=== PATIENT | male | born 1950 | race Caucasian/White ===

== ENCOUNTER 2022-07-15 07:49 | Day surgery (SDC) | payer OTHER ==
--- NOTE | 2022-07-14 17:28 | EKG ---
Test Date: 2022-07-13 Test Time: 14:42:32 [employer] Technical Architect: [email or web address] MEASUREMENT RESULTS: Intervals: Rate: 66 RI: 130 QRSD: 98 QT: 374 QTc: 392 [place]: P: 43 RI: 130 QRS: -33 T: 27 INTERPRETIVE STATEMENTS: Normal sinus rhythm Left axis deviation Abnormal ECG No previous ECG available for comparison Electronically Signed On 07-14-22 17:26:17 MEDICAL OFFICE RECEPTIONIST ASSISTANT by Marlon De La O
[2022-07-15] MEDS ORDERED: Ringers Lactate 1,000 ML IV ONE (08:20)
[2022-07-15] MEDS ORDERED: propofoL 200 MG/20 ML VIAL IV ONE ×3 (09:37→09:43)
[2022-07-15] MEDS ORDERED: LIDOCAINE 1% W/EPI 1:100,000 10 ML VIAL ONE (09:40)
[2022-07-15] MEDS ORDERED: EPINEPHRINE/PF 1 MG/ML AMP ONE (09:40)
[2022-07-15] MEDS ORDERED: OXYMETAZOLINE HCL 0.05% 15ML NAS ONE (09:40)
[2022-07-15] MEDS ORDERED: MIDAZOLAM HCL 2 MG/2 ML INJ ONE (09:43)
[2022-07-15] MEDS ORDERED: FENTANYL CITR 100 MCG/2 ML ONE (09:43)
[2022-07-15] MEDS ORDERED: dexAMETHasone 10 MG/ML VIAL ONE (09:44)
[2022-07-15] MEDS ORDERED: VECURONIUM 10 MG/VIAL IV ONE (09:44)
[2022-07-15] MEDS ORDERED: LIDOCAINE 2% MPF 5 ML VIAL ONE (09:45)
[2022-07-15] MEDS ORDERED: ONDANSETRON 4 MG/2 ML VIAL ONE (09:45)
[2022-07-15] MEDS ORDERED: NS 0.9% VIAL 20 ML ONE (09:46)
[2022-07-15] MEDS ORDERED: SUGAMMADEX SODIUM 200 MG/2 ML VIAL IV ONE (09:55)
[2022-07-15] MEDS ORDERED: SUCCINYLCHOLINE 20 MG/ML (10 ML) IV ONE (09:55)
--- NOTE | 2022-07-15 11:19 | P.OP ---
Airworthiness Safety Inspector: NONE,NONE Preoperative diagnosis: Neoplasm of uncertain behavior, larynx Postoperative diagnosis: Same Primary procedure: Direct laryngoscopy with telescope and biopsy Anesthesia: General Estimated blood loss: 5 mL Specimen: Interarytenoid, left arytenoid, epiglottis Findings: Exophytic tumor suspicious for cancer Operative Technique: The patient was successfully intubated by anesthesia without complication. A shoulder roll was placed and the neck was extended but supported. A upper tooth guard was placed. The [employer] laryngoscope fitted with telescope was used to perform a direct laryngoscopy. The above base of tongue and vallecula appeared normal. The epiglottis appeared thickened, red with exophytic tumor on the laryngeal aspect. The right piriform sinus appeared unremarkable. The left piriform sinus was partially obstructed with tumor from the arytenoid but the mucosa of the piriform sinus itself appeared normal. The interarytenoid area was notable for exophytic appearing tumor which was biopsied. Additional biopsy was obtained from the left arytenoid and left laryngeal surface of the epiglottis. A Ray-Jelly was packed into the larynx and allowed to sit for several minutes to aid in hemostasis. After removal, the laryngoscope was replaced, the Ray-Jelly removed, and the area inspected. The glottis itself did not appear to be involved but the endotracheal tube was not removed during the procedure due to concern for loss of airway. The tumor did not appear to be significantly bulky or obstructive of the airway and decision was made to forego tracheostomy as it was not deemed necessary at this time. The patient denied any preoperative airway symptoms, stridor, shortness of breath or significant voice changes. The patient was successfully extubated in the operating room and transported to the recovery room in stable condition. Complications: None Transferred to: Recovery Room (None) Condition: Good
[2022-07-15 12:09] VITALS: TEMP 97.3; O2SAT 99
[2022-07-15 13:25] VITALS: BP 101/52
== END 2022-07-15 12:50 | disposition home or self-care (01) ==
LOC: OR 07:49
PROVIDERS: ATTEND Otolaryngology
PROC: 0CBS8ZX Excision of Larynx, Via Natural or Artificial Opening Endoscopic, Diagnostic (ICD-10-PCS; 2022-07-15)
PROC: 0CBR8ZX Excision of Epiglottis, Via Natural or Artificial Opening Endoscopic, Diagnostic (ICD-10-PCS; principal; 2022-07-15 09:30)
DX: C32.1 Malignant neoplasm of supraglottis (principal); C10.1 Malignant neoplasm of anterior surface of epiglottis; J31.2 Chronic pharyngitis; R13.10 Dysphagia, unspecified; F17.210 Nicotine dependence, cigarettes, uncomplicated; E66.3 Overweight
CPT/HCPCS: 93005; 88305; 31536; J2704 ×3; J0330; J3010; A4216; J2001; J2250; J1100; J7120; J2405; J0171